=== PATIENT | female | born 1980 | race Caucasian/White ===

== ENCOUNTER 2017-10-07 11:03 | Emergency (ER) | payer OTHER ==
[~2017-10-07] VITALS: Ht 162.6 cm; Wt 59.0 kg
[~2017-10-07 11:03] MED LIST: Cephalexin PO; Hydrocodone PO
[2017-10-07 11:31] LABS: *BILIRUBIN,URIN NEGATIVE (NEGATIVE); *BLOOD, URINE 3+ (NEGATIVE); *CLARITY,URINE CLOUDY (CLEAR); *COLOR,URINE YELLOW (YELLOW); *KETONES,URINE NEGATIVE (NEGATIVE); *UROBILINOGEN,URINE 0.2 E.U./dl (NORMAL); LEUKOCYTE ESTERASE ,URINE 2+ (NEGATIVE); NITRITE, URINE NEGATIVE (NEGATIVE); PH,URINE 6.5 (5.0-8.0); UGLUCOSE NEGATIVE (NEGATIVE)
[2017-10-07 11:32] LABS: *URINE HCG, QUAL NEGATIVE (NEGATIVE)
[2017-10-07 11:58] LABS: *PROTEIN,URINE 3+ (NEGATIVE)
[2017-10-07 11:59] LABS: BACTERIA,URINE NONE SEEN /HPF (NONE SEEN); RBC,URINE TNTC /HPF (0-3); SQUAMOUS EPITHELIAL CELL,UR FEW /HPF (NONE SEEN); WBC,URINE TNTC /HPF (0-3)
[2017-10-07] MEDS: IV NORMAL SALINE 1000 ML BAG IV ONE (12:06)
[2017-10-07] MEDS: MORPHINE SULFATE 2 MG/1 ML DISP.SYRIN IV ONE (12:06)
[2017-10-07] MEDS ORDERED: PHENAZOPYRIDINE HCL 100 MG TABLET ONE (12:08)
[2017-10-07] MEDS ORDERED: HYDROCODONE/APAP 5-325MG TABLET ONE (12:08)
[2017-10-07] MEDS ORDERED: CEFTRIAXONE 1 G VIAL ONE (12:08)
[2017-10-07] MEDS: PHENAZOPYRIDINE HCL 100 MG TABLET PO ONE (12:14)
[2017-10-07] MEDS: CEFTRIAXONE 1 G in IV DEXTROSE 5% 50 ML IV ONE (12:14)
[2017-10-07] MEDS: HYDROCODONE/APAP 5-325MG TABLET PO ONE (12:14)
[2017-10-07] MEDS: ONDANSETRON 4 MG/2 ML VIAL IV ONE (12:37)
--- NOTE | 2017-10-07 12:46 | NUR ---
Patient discharged to home in stable conditon. Written and verbal after care instructions given. Patient verbalizes understanding of instructions.PT WALKS IN STEADY GAIT. PT DENIES PAIN OR NAUSEA AT THIS TIME. PT ACCOMPANED BY . PT NOT DRIVING
[2017-10-07 12:47] VITALS: BP 111/71
== END 2017-10-07 12:47 | disposition home or self-care (01) ==
LOC: ER 11:03
DX: N12 Tubulo-interstitial nephritis, not specified as acute or chronic (principal); Z79.2 Long term (current) use of antibiotics; Z79.891 Long term (current) use of opiate analgesic; Z90.49 Acquired absence of other specified parts of digestive tract
CPT/HCPCS: 81001; 84703; 87077; 87086; 87186; 96365; 99284; A4663; J0696; J7030